=== PATIENT | male | born 1955 | race Caucasian/White ===

== ENCOUNTER → 2018-04-24 | Outpatient (CLI) | payer BC ==
--- NOTE | 2018-04-24 19:23 | RADIOLOGY IMAGING REPORT ---
FACILITY: [facility] - [place] PATIENT NAME: Arron Richards : 1955 MR: [id number] V: [id number] EXAM DATE: ORDERING PHYSICIAN: JAVIER HANDLEY TECHNOLOGIST: Location: [facility] Patient: Arron Richards : 1955 Visit/Account:[id number] Date of Sevice: 04/24/2018 Venous Doppler ultrasound right lower extremity Indication: Right leg edema.. Comparison: None Available Findings: Duplex Doppler and color flow imaging was performed. The common femoral, femoral, and popl iteal veins are all patent and compressible with normal Doppler wave forms. There are normal respons es to augmentation. The posterior tibial and peroneal veins are patent in the calf. The proximal greater saphenous vein i s also normal. Subcutaneous edema seen in the right lower leg. IMPRESSION: 1. No evidence of deep venous thrombosis of the right lower extremity. Report Dictated By: Kaleb Dias at 04/24/2018 7:17 PM Report E-Signed By: Kaleb Dias at 04/24/2018 7:18 PM WSN:[id number]
== END ==
LOC: US 17:56
PROVIDERS: ATTEND Nurse Practitioner Family
DX: R22.41 Localized swelling, mass and lump, right lower limb (principal)